=== PATIENT | female | born 1950 | race Caucasian/White ===

== ENCOUNTER 2018-03-27 10:35 | Outpatient (CLI) | payer OTHER | END 2018-03-27 10:43 | disposition home or self-care (01) | LOC: NUCLEAR 10:35 | DX: I73.9 Peripheral vascular disease, unspecified (principal); I87.2 Venous insufficiency (chronic) (peripheral) ==

== ENCOUNTER → 2018-03-30 | Outpatient (CLI) | payer OTHER | END | disposition home or self-care (01) | LOC: NUCLEAR 10:25 | DX: I87.2 Venous insufficiency (chronic) (peripheral) (principal) ==

== ENCOUNTER 2022-12-17 14:44 | Inpatient (IN) | payer OTHER ==
[~2022-12-17] VITALS: Ht 154.9 cm; Wt 70.3 kg
[2022-12-17] MEDS ORDERED: ENALAPRIL MALE2.5 MG PO (15:06)
[2022-12-17] MEDS ORDERED: ADULT LOW DOSE81 M1 (15:06)
--- NOTE | 2022-12-17 15:06 | NUR ---
PACIENTE ALERTA Y ORIENTADA X3, REFIERE QUE VIENE POR PARTE DEL ESTABAN GUERRERO PARA HOSPITALIZACION POR POSIBLE PNEUMONIA. SE MONITOREAN VS Y SE UBICA EN JHONNY #6.
--- NOTE | 2022-12-17 17:22 | NUR ---
MS WAGGONER ORIENTA PTE SOBRE TX MEDICO EL CUAL REFIERE ENTENDER.SE LE EXTRAEN MUESTRAS BAJO MEDIDAS ASEPTICAS,SE CANALIZA Y SE ADMINISTRAN MEDICAMENTOS MELANY ORDEN MEDICA.SE NOTIFICAN ABG A MR VALDEZ DE TERAPIA RESP.
[2022-12-20] MEDS ORDERED: LEVOFLOXACIN750 MG PO (08:45)
[2022-12-20] MEDS ORDERED: XOPENEX0.63 MG/3 IH (15:56)
[2022-12-20] MEDS ORDERED: BUDESONIDE0.5 MG/21 IH (15:56)
== END 2022-12-20 10:23 | disposition home or self-care (01) | DRG 195 ==
LOC: ER 14:44 → MEDI 19:30
PROVIDERS: ADMIT Internal Medicine; ATTEND Internal Medicine
PROC: 3E0F7GC Introduction of Other Therapeutic Substance into Respiratory Tract, Via Natural or Artificial Opening (ICD-10-PCS; principal; 2022-12-18)
DX: J18.9 Pneumonia, unspecified organism (principal); E87.6 Hypokalemia

== ENCOUNTER → 2022-12-17 | Outpatient (CLI) | payer OTHER ==
[~2022-12-17] MED LIST: ADULT LOW DOSE81 M1; BUDESONIDE0.5 MG/21 IH; ENALAPRIL MALE2.5 MG PO; LEVOFLOXACIN750 MG PO; XOPENEX0.63 MG/3 IH
== END | disposition home or self-care (01) ==
LOC: TOM 13:00
PROVIDERS: ATTEND Internal Medicine
DX: J20.0 Acute bronchitis due to Mycoplasma pneumoniae (principal); R05.8 Other specified cough; J20.9 Acute bronchitis, unspecified

== ENCOUNTER 2023-05-28 07:40 | Day surgery (SDC) | payer OTHER ==
[~2023-05-28 07:40] MED LIST changes: +ATORVASTATIN CA40 MG PO; +DILTIAZEM ER180 M3; +EZALLOR SPRINKLE5 MG PO; +FENOFIBRATE50 MG; +HORIZANT300 MG
[2023-05-28] MEDS ORDERED: PERCOCET 5-3251 EACH PO (14:52)
[2023-05-28] MEDS ORDERED: NEURONTIN300 MG PO (14:52)
[2023-05-28] MEDS ORDERED: POLY119PG PO (14:52)
== END 2023-05-28 17:50 | disposition home or self-care (01) ==
LOC: CIR.AMB 07:40
PROVIDERS: ATTEND Surgery
DX: K43.2 Incisional hernia without obstruction or gangrene (principal); Z20.822 Contact with and (suspected) exposure to COVID-19
CPT/HCPCS: 49616; C1781

== ENCOUNTER 2023-06-26 10:00 | Outpatient (CLI) | payer OTHER ==
[~2023-06-26 10:00] MED LIST changes: +NEURONTIN300 MG PO; +PERCOCET 5-3251 EACH PO; +POLY119PG PO
== END 2023-06-26 10:12 | disposition home or self-care (01) ==
LOC: TOM 10:00
DX: J18.0 Bronchopneumonia, unspecified organism (principal); R91.8 Other nonspecific abnormal finding of lung field

== ENCOUNTER 2024-08-30 13:56 | Emergency (ER) | payer OTHER ==
[~2024-08-30] VITALS: Ht 144.8 cm; Wt 69.9 kg
[2024-08-30] MEDS ORDERED: COZAAR50 MG PO (14:21)
[2024-08-30] MEDS ORDERED: MECLIZINE HCL 25 MG TABLET PO STA (15:24)
[2024-08-30 15:53] LABS: HEMATOCRIT 40.5 % (36.0-45.00); HEMOGLOBIN 13.5 g/dL (12.0-15.00); MEAN CELL VOLUME 84.5 fL (80.00-100.00); MEAN CORPUSCULAR HEMOGLOBIN 28.1 pg (27.00-32.0); MEAN CORPUSCULAR HGB CONC 33.3 g/dl (32.0-36.0); PLATELET COUNT 357 K/uL (150-450); RED BLOOD COUNT 4.79 M/uL (4.00-6.00); RED CELL DISTRIBUTION WIDTH 15.4 % (11.5-14.5)
[2024-08-30 16:00] LABS: URINE APPEARANCE Turbid; URINE BILIRRUBIN Negative (NEGATIVE); URINE BLOOD Negative; URINE COLOR Yellow; URINE GLUCOSE Negative (NEGATIVE); URINE KETONE Negative (NEGATIVE); URINE LEUKOCYTE Trace; URINE NITRATE Negative; URINE PROTEIN Negative (NEGATIVE); URINE UROBILINOGEN 0.2 E.U./dl
[2024-08-30 16:01] LABS: URINE BACTERIA 47.8 uL (0.0-1933); URINE EPITHELIAL CELLS 8.4 uL (0.0-38.8); URINE RBC 3.6 uL (0.0-20.8); URINE WBC 25.4 uL (0.0-23.2)
[2024-08-30 16:21] LABS: CALCIUM 9.7 mg/dL (8.5-10.1); CREATININE SERUM 0.68 mg/dL (0.55-1.02); GFR 84.81; POTASSIUM 4.23 mEq/L (3.5-5.1)
== END 2024-08-30 23:43 | disposition home or self-care (01) ==
LOC: ER 13:58
PROVIDERS: General Practice
DX: R53.81 Other malaise (principal); R42 Dizziness and giddiness